=== PATIENT | female | born 1945 | race Caucasian/White ===

== ENCOUNTER → 2017-07-24 | Outpatient (CLI) | payer OTHER, BC | END | disposition home or self-care (01) | DX: M17.11 Unilateral primary osteoarthritis, right knee (principal); R26.2 Difficulty in walking, not elsewhere classified; M25.561 Pain in right knee; M25.661 Stiffness of right knee, not elsewhere classified; M62.81 Muscle weakness (generalized); Z74.1 Need for assistance with personal care | CPT/HCPCS: 97161 GP; 97165 GO; 97530 GP; 97535 GO; G8978 GP; G8979 GP; G8980 GP; G8987 GO; G8988 GO; G8989 GO ==

== ENCOUNTER 2017-08-13 21:48 | Inpatient (IN) | payer OTHER, BC ==
[~2017-08-13] VITALS: Ht 160 cm; Wt 108.2 kg
[~2017-08-13 21:48] MED LIST: CALCIUM 500 +1 EACH PO; CENTRUM SILVER1 EAC3 PO; CYMBALTA60 MG PO; FISH OIL 1,0001 EAC7 PO; LOPRESSOR25 MG PO; MOBIC7.5 MG PO; NORVASC5 MG PO; PREVACID30 MG PO; SKELAXIN800 MG PO; TYLENOL ARTHRI650 MG PO; VITAMIN B122500 MCG PO; ZETIA10 MG PO
[2017-08-14 06:32] VITALS: BP 144/68
[2017-08-14 06:35] VITALS: BP 144/68
[2017-08-14 10:11] LABS: HEMATOCRIT 41.9 % (36.0-46.0); MCV 93.5 FL (83-99); PLATELET COUNT 304 K/uL (156-360); RBC DIS.WIDTH-CV 14.9 % (11.8-14.6); RBC DIS.WIDTH-SD 51.5 % (39-53); RED BLOOD COUNT 4.48 M/uL (3.80-5.20); WHITE BLOOD COUNT 10.3 K/uL (4.1-10.2)
[2017-08-14 14:48] VITALS: BP 142/82
[2017-08-14 19:09] VITALS: BP 168/76
[2017-08-14 23:25] VITALS: BP 164/84
[2017-08-15 03:08] VITALS: BP 160/71
[2017-08-15 07:58] LABS: HEMATOCRIT 37.3 % (36.0-46.0); HEMOGLOBIN 11.8 G/DL (11.9-15.5); MCV 92.8 FL (83-99)
[2017-08-15 08:23] LABS: CHLORIDE 103 MEQ/L (99-109); CREATININE 0.7 MG/DL (0.6-1.3); GFR ESTIMATE (CALCULATED) > 59 mL/min/; GLUCOSE 160 mg/dL (70-99); POTASSIUM 4.6 MEQ/L (3.7-5.4); SODIUM 139 MEQ/L (136-147); UREA NITROGEN (BUN) 14 mg/dL (9-23)
[2017-08-15 11:10] VITALS: BP 153/66
[2017-08-15 15:27] VITALS: BP 147/67
[2017-08-15 20:40] VITALS: BP 128/59
[2017-08-16 00:30] VITALS: BP 132/61
[2017-08-16 04:24] VITALS: BP 143/63
[2017-08-16 05:53] LABS: HEMATOCRIT 34.5 % (36.0-46.0); HEMOGLOBIN 10.9 G/DL (11.9-15.5)
[2017-08-16 08:00] VITALS: BP 147/69
[2017-08-16] MEDS ORDERED: ENDOCET 5-3251 EACH PO (08:52)
[2017-08-16] MEDS ORDERED: LOVENOX40 MG/0.4 SC (08:52)
[2017-08-16] MEDS ORDERED: HYDROCODON-ACE1 EAC7 PO (08:54)
[2017-08-16 12:00] VITALS: BP 149/66
[2017-08-16] MEDS ORDERED: PROTONIX40 MG PO (15:37)
[2017-08-16] MEDS ORDERED: CELEBREX200 MG PO (15:38)
[2017-08-16] MEDS ORDERED: SENOKOT S,PE1 TABLET PO (15:39)
[2017-08-16] MEDS ORDERED: PERCOCET 10/1 TABLET PO (15:40)
[2017-08-16] MEDS ORDERED: LIDOCARE1 EACH TP (15:44)
[2017-08-16] MEDS ORDERED: COLACE100 MG PO (15:45)
[2017-08-16] MEDS ORDERED: DULCOLAX5 MG PO (15:50)
[2017-08-16] MEDS ORDERED: LORTAB 10-3251 EACH PO (15:52)
== END 2017-08-16 14:47 | DRG 470 ==
LOC: ENRESERV 21:48 → 2SOUTH 08-14 05:32 → 3WEST 08-14 05:32 → 2SOUTH 08-14 11:44 → ENRESERV 08-14 12:31 → 3EAST 08-14 13:42 → 2SOUTH 08-14 14:00 → ENRESERV 08-15 16:37 → 3WEST 08-15 20:24 → ENRESERV 08-16 08:43 → 3WEST 08-16 14:47
PROVIDERS: Orthopaedic Surgery
PROC: 0SRC0J9 Replacement of Right Knee Joint with Synthetic Substitute, Cemented, Open Approach (ICD-10-PCS; principal; 2017-08-16)
DX: M17.11 Unilateral primary osteoarthritis, right knee (principal); I10 Essential (primary) hypertension; K21.9 Gastro-esophageal reflux disease without esophagitis; Z96.641 Presence of right artificial hip joint; Z83.3 Family history of diabetes mellitus; Z80.52 Family history of malignant neoplasm of bladder; Z82.49 Family history of ischemic heart disease and other diseases of the circulatory system; Z96.652 Presence of left artificial knee joint; Z90.710 Acquired absence of both cervix and uterus
CPT/HCPCS: 73560; 80048; 85014; 85018; 85027; 94799; C1713; J0690; J1100; J1170; J1650; J1885; J2250; J2405; J2795; J7030; J7050; Q0175

== ENCOUNTER 2017-08-16 12:08 | Inpatient (IN) | payer OTHER, BC ==
[~2017-08-16] VITALS: Ht 170.2 cm; Wt 106.3 kg
[~2017-08-16 12:08] MED LIST changes: +ENDOCET 5-3251 EACH PO; +HYDROCODON-ACE1 EAC7 PO; +LOVENOX40 MG/0.4 SC
[2017-08-16 14:45] VITALS: BP 144/65
[2017-08-16] MEDS ORDERED: PROTONIX40 MG PO (15:37)
[2017-08-16] MEDS ORDERED: CELEBREX200 MG PO (15:38)
[2017-08-16] MEDS ORDERED: SENOKOT S,PE1 TABLET PO (15:39)
[2017-08-16] MEDS ORDERED: PERCOCET 10/1 TABLET PO (15:40)
[2017-08-16] MEDS ORDERED: LIDOCARE1 EACH TP (15:44)
[2017-08-16] MEDS ORDERED: COLACE100 MG PO (15:45)
[2017-08-16] MEDS ORDERED: DULCOLAX5 MG PO (15:50)
[2017-08-16] MEDS ORDERED: LORTAB 10-3251 EACH PO (15:52)
[2017-08-16 21:39] VITALS: BP 1437/67
[2017-08-17 00:20] VITALS: BP 131/75
[2017-08-17 05:22] VITALS: BP 124/58
[2017-08-17 07:25] LABS: HEMATOCRIT 33.9 % (36.0-46.0); HEMOGLOBIN 10.6 G/DL (11.9-15.5); MCH 28.7 PG (29.0-34.0); MCHC 31.3 G/DL (30.0-36.0); MCV 91.9 FL (83-99); PLATELET COUNT 305 K/uL (156-360); RBC DIS.WIDTH-CV 14.7 % (11.8-14.6); RBC DIS.WIDTH-SD 50.1 % (39-53); RED BLOOD COUNT 3.69 M/uL (3.80-5.20); WHITE BLOOD COUNT 8.5 K/uL (4.1-10.2)
[2017-08-17 07:41] LABS: ALBUMIN 3.6 G/DL (3.2-4.8); ALKALINE PHOSPHATASE 80 IU/L (3-129); ALT (GPT) 15 IU/L (3-49); AST (GOT) 14 IU/L (2-34); CHLORIDE 103 MEQ/L (99-109); CREATININE 0.5 MG/DL (0.6-1.3); GFR ESTIMATE (CALCULATED) > 59 mL/min/; POTASSIUM 3.9 MEQ/L (3.7-5.4); SODIUM 140 MEQ/L (136-147); TOTAL BILIRUBIN 0.7 MG/DL (0.0-1.0); TOTAL PROTEIN 5.7 G/DL (6.4-8.3); UREA NITROGEN (BUN) 13 mg/dL (9-23)
[2017-08-17 07:42] LABS: GLUCOSE 116 mg/dL (70-99)
[2017-08-17 15:01] VITALS: BP 142/70
[2017-08-18 06:24] VITALS: BP 138/62
[2017-08-18 15:05] VITALS: BP 118/68
[2017-08-19 05:56] VITALS: BP 120/55
[2017-08-19 15:27] VITALS: BP 169/75
[2017-08-20 06:09] VITALS: BP 143/67
[2017-08-20 15:19] VITALS: BP 136/61
== END 2017-08-21 13:59 | DRG 560 ==
LOC: 3WEST 12:08
PROVIDERS: Physical Medicine & Rehabilitation Pain Medicine
PROC: F07M0ZZ Range of Motion and Joint Mobility Treatment of Musculoskeletal System - Whole Body (ICD-10-PCS; principal; 2017-08-16)
DX: Z47.1 Aftercare following joint replacement surgery (principal); D62 Acute posthemorrhagic anemia; F33.9 Major depressive disorder, recurrent, unspecified; I10 Essential (primary) hypertension; K21.9 Gastro-esophageal reflux disease without esophagitis; G89.18 Other acute postprocedural pain; Z96.641 Presence of right artificial hip joint; Z96.653 Presence of artificial knee joint, bilateral; M19.012 Primary osteoarthritis, left shoulder; M19.011 Primary osteoarthritis, right shoulder; Z60.2 Problems related to living alone; E66.9 Obesity, unspecified; Z90.710 Acquired absence of both cervix and uterus; Z90.49 Acquired absence of other specified parts of digestive tract; Z88.5 Allergy status to narcotic agent; Z68.36 Body mass index [BMI] 36.0-36.9, adult; Z91.011 Allergy to milk products; Z80.52 Family history of malignant neoplasm of bladder; Z83.3 Family history of diabetes mellitus; Z82.49 Family history of ischemic heart disease and other diseases of the circulatory system
CPT/HCPCS: 80053; 85027; 97110 GO; 97530 GP; J1650